=== PATIENT | female | born 1990 ===

== ENCOUNTER 2016-07-31 17:01 | Emergency (ER) | payer MEDICAID ==
[2016-07-31 17:25] VITALS: BP 113/82; PULSE 81; RESP 20; TEMP 98.3; O2SAT 99
--- NOTE | 2016-07-31 17:47 | ED PDOC ---
HPI: Back Time Seen by Provider: 07/31/16 17:27 Chief Complaint (Nursing): Back Pain Chief Complaint (Provider): back pain History Per: Patient Additional Complaint(s): pt w/ hx scoliosis surgically repaired in 2009 c/o upper back pain x 3 days. no falls or injury. no associated fever, cp, sob, abd pain, n/v/d, urinary c/o , numbness, weakness distally. Past Medical History Reviewed: Historical Data, Nursing Documentation, Vital Signs Vital Signs: Last Vital Signs Temp 98.3 F 07/31/16 17:24 Pulse 81 07/31/16 17:24 Resp 20 07/31/16 17:24 BP 113/82 07/31/16 17:24 Pulse Ox 99 07/31/16 17:24 - Medical History PMH: Asthma (as child), Back Problems (scoliosis), Fractures (left foot) Denies: Chronic Kidney Disease - Surgical History Surgical History: Back Surgery (dahiana for scoliosis) - Family History Family History: States: No Known Family Hx - Social History Current smoker - smoking cessation education provided: No Alcohol: None Drugs: Denies - Home Medications Home Medications: Ambulatory Orders Medication Instructions Recorded Ibuprofen 600 mg PO Q8H PRN #60 tab 11/20/14 oxyCODONE/Acetaminophen [Percocet 1 tab PO Q6H PRN #5 tab 12/06/14 5/325 mg Tab] Prednisone 50 mg PO DAILY #5 tab 04/09/15 hydrOXYzine HCl [Atarax] 25 mg PO Q6H PRN #30 tab 04/10/15 Ciprofloxacin/Ciprofloxa HCl 500 mg PO BID #10 ter 10/06/15 [Ciprofloxacin] Albuterol Sulfate [Proair Hfa] 2 puff IH Q6 #1 unit 11/16/15 Hydrocodone Bit/Homatrop Me-Br 5 ml PO HS PRN #30 ml 11/16/15 [Hydrocodone-Homatropine Syrup] levoFLOXacin [Levaquin] 750 mg PO DAILY #7 tab 11/16/15 Cyclobenzaprine [Cyclobenzaprine 10 mg PO Q8 PRN #12 tab 01/09/16 HCl] Ibuprofen [Motrin] 600 mg PO TID PRN #30 tab 01/09/16 Meloxicam 7.5 mg PO BID PRN #14 tablet 01/12/16 diaZEpam [Valium] 5 mg PO Q8 PRN #4 tab 01/12/16 Naproxen [Naprosyn] 500 mg PO BID PRN #15 tablet 01/29/16 Amoxicillin/Clavulanate [Augmentin 1 tab PO BID #20 tab 03/29/16 875 MG-125 MG] Cyclobenzaprine [Cyclobenzaprine 10 mg PO Q8 #15 tab 07/31/16 HCl] Naproxen [Naprosyn Tab] 375 mg PO BID #20 tab 07/31/16 - Allergies Allergies/Adverse Reactions: Allergies Allergy/AdvReac Type Severity Reaction Status Date / Time Iodinated Contrast Media - Allergy RASH Verified 07/31/16 17:23 Oral and [Iodinated Contrast Media - IV Dye] Sulfa (Sulfonamide Allergy RASH Verified 07/31/16 17:23 Antibiotics) Review of Systems ROS Statement: Except As Marked, All Systems Reviewed And Found Negative Musculoskeletal: Positive for: Back Pain Physical Exam - Reviewed Nursing Documentation Reviewed: Yes Vital Signs Reviewed: Yes - Physical Exam Appears: Positive for: Well, Non-toxic, No Acute Distress Skin: Positive for: Normal Color, Warm, DRY Neck: Positive for: Normal, Painless ROM Cardiovascular/Chest: Positive for: Regular Rate, Rhythm Respiratory: Positive for: CNT, Normal Breath Sounds Gastrointestinal/Abdominal: Positive for: Normal Exam, Bowel Sounds, Soft. Negative for: Tenderness Back: Positive for: Normal Inspection, Muscle Spasm (L midscapular). Negative for: Vertebral Tenderness, Decreased ROM Extremity: Positive for: Normal ROM. Negative for: Tenderness Neurologic/Psych: Positive for: Alert, Oriented, Gait (steady). Negative for: Motor/Sensory Deficits - ECG O2 Sat by Pulse Oximetry: 99 Disposition - Clinical Impression Clinical Impression: Strain of thoracic region - Patient ED Disposition Is Patient to be Admitted: No - Disposition Referrals: Coleen Topete MD [Staff Provider] - Disposition: Routine/Home Disposition Time: 17:49 Condition: GOOD Prescriptions: Cyclobenzaprine [Cyclobenzaprine HCl] 10 mg PO Q8 #15 tab Naproxen [Naprosyn Tab] 375 mg PO BID #20 tab Instructions: Back Pain (ED) Forms: [facility] ED School/Work Excuse
== END 2016-07-31 18:20 | disposition home or self-care (01) ==
LOC: H.ER 17:01
DX: M54.9 Dorsalgia, unspecified (principal)

== ENCOUNTER 2016-08-19 16:32 | Emergency (ER) | payer MEDICAID ==
[2016-08-19 16:42] VITALS: BP 118/75; PULSE 90; TEMP 98.2; O2SAT 99
[2016-08-19] MEDS ORDERED: Albuterol-Ipratrop 3 mg / 0.5 (3 ml) UD IH STA (17:15)
[2016-08-19] MEDS ORDERED: Albuterol-Ipratrop 3 mg / 0.5 (3 ml) UD INH STA (17:15)
--- NOTE | 2016-08-19 17:24 | ED PDOC ---
HPI: CCC, URI, Sore Throat Time Seen by Provider: 08/19/16 16:48 Chief Complaint (Nursing): Chest Pain Chief Complaint (Provider): Cough History Per: Patient History/Exam Limitations: no limitations Onset/Duration Of Symptoms: Days (3) Current Symptoms Are (Timing): Still Present Additional Complaint(s): Cough, runny nose, nasal congestion, bodyaches, chest pain on cough, and tightness like her asthma flare. No nausea, vomit, diarrhea, weakness, abd pain , headaches. Did not take anything for her asthma. Has no meds for it. No calf pain. No control meds. No long distance travel. Past Medical History Reviewed: Nursing Documentation, Vital Signs Vital Signs: Last Vital Signs Temp 98.2 F 08/19/16 16:41 Pulse 90 08/19/16 16:41 Resp 20 08/19/16 18:07 BP 118/75 08/19/16 16:41 Pulse Ox 99 08/19/16 17:27 - Medical History PMH: Asthma (as child), Back Problems (scoliosis), Fractures (left foot) Denies: Chronic Kidney Disease - Surgical History Surgical History: Back Surgery ([place] for scoliosis) - Family History Family History: States: Unknown Family Hx - Home Medications Home Medications: Ambulatory Orders Medication Instructions Recorded Ibuprofen 600 mg PO Q8H PRN #60 tab 11/20/14 oxyCODONE/Acetaminophen [Percocet 1 tab PO Q6H PRN #5 tab 12/06/14 5/325 mg Tab] Prednisone 50 mg PO DAILY #5 tab 04/09/15 hydrOXYzine HCl [Atarax] 25 mg PO Q6H PRN #30 tab 04/10/15 Ciprofloxacin/Ciprofloxa HCl 500 mg PO BID #10 ter 10/06/15 [Ciprofloxacin] Albuterol Sulfate [Proair Hfa] 2 puff IH Q6 #1 unit 11/16/15 Hydrocodone Bit/Homatrop Me-Br 5 ml PO HS PRN #30 ml 11/16/15 [Hydrocodone-Homatropine Syrup] levoFLOXacin [Levaquin] 750 mg PO DAILY #7 tab 11/16/15 Cyclobenzaprine [Cyclobenzaprine 10 mg PO Q8 PRN #12 tab 01/09/16 HCl] Ibuprofen [Motrin] 600 mg PO TID PRN #30 tab 01/09/16 Meloxicam 7.5 mg PO BID PRN #14 tablet 01/12/16 diaZEpam [Valium] 5 mg PO Q8 PRN #4 tab 01/12/16 Naproxen [Naprosyn] 500 mg PO BID PRN #15 tablet 01/29/16 Amoxicillin/Clavulanate [Augmentin 1 tab PO BID #20 tab 03/29/16 875 MG-125 MG] Cyclobenzaprine [Cyclobenzaprine 10 mg PO Q8 #15 tab 07/31/16 HCl] Naproxen [Naprosyn Tab] 375 mg PO BID #20 tab 07/31/16 Albuterol Sulfate [Proair Hfa] 0.09 mg IH Q6H PRN #2 inh 08/19/16 Ibuprofen [Motrin] 600 mg PO TID 7 Days 08/19/16 predniSONE [predniSONE Tab] 20 mg PO BID 5 Days 08/19/16 - Allergies Allergies/Adverse Reactions: Allergies Allergy/AdvReac Type Severity Reaction Status Date / Time Iodinated Contrast Media - Allergy RASH Verified 08/19/16 16:41 Oral and [Iodinated Contrast Media - IV Dye] Sulfa (Sulfonamide Allergy RASH Verified 08/19/16 16:41 Antibiotics) Review of Systems ROS Statement: Except As Marked, All Systems Reviewed And Found Negative ENT: Positive for: Nose Congestion Cardiovascular: Positive for: Chest Pain Respiratory: Positive for: Cough, Shortness of Breath Musculoskeletal: Positive for: Other (bodyaches) Physical Exam - Reviewed Nursing Documentation Reviewed: Yes Vital Signs Reviewed: Yes - Physical Exam Appears: Positive for: Non-toxic, No Acute Distress Head Exam: Positive for: ATRAUMATIC, NORMAL INSPECTION, NORMOCEPHALIC Skin: Positive for: Normal Color, Warm, DRY Eye Exam: Positive for: EOMI, Normal appearance, PERRL ENT: Positive for: Normal ENT Inspection Neck: Positive for: Normal, Painless ROM Cardiovascular/Chest: Positive for: Regular Rate, Rhythm, Chest Non Tender. Negative for: Edema Respiratory: Positive for: Wheezing (b/l mild ). Negative for: Accessory Muscle Use Gastrointestinal/Abdominal: Positive for: Normal Exam, Bowel Sounds, Soft. Negative for: Tenderness Back: Positive for: Normal Inspection. Negative for: L CVA Tenderness, R CVA Tenderness Extremity: Positive for: Normal ROM. Negative for: Tenderness, Pedal Edema Neurologic/Psych: Positive for: Alert, Oriented - ECG ECG: Positive for: Interpreted By Me, Viewed By Me ECG Rhythm: Positive for: Normal QRS, Normal ST Segment, Sinus Rhythm O2 Sat by Pulse Oximetry: 99 Pulse Ox Interpretation: Normal - Radiology X-Ray: Read By Radiologist X-Ray Interpretation: No Acute Disease - Progress ED Course And Treament: 1854: Stable. AAOx3. Pain free. Tolerated PO. FU with pcp. Disposition - Clinical Impression Clinical Impression: Chest wall pain, Asthma, URI (upper respiratory infection) - Patient ED Disposition Is Patient to be Admitted: No Counseled Patient/Family Regarding: Studies Performed, Diagnosis, Need For Followup, Rx Given - Disposition Referrals: [facility] [Outside] - 08/20/16 Disposition: Routine/Home Disposition Time: 18:56 Condition: STABLE Additional Instructions: Return if not better in 3 days. Prescriptions: Ibuprofen [Motrin] 600 mg PO TID 7 Days Albuterol Sulfate [Proair Hfa] 0.09 mg IH Q6H PRN #2 inh PRN Reason: Wheezing predniSONE [predniSONE Tab] 20 mg PO BID 5 Days Instructions: Asthma (ED), Upper Respiratory Infection (ED), Chest Pain (ED) Forms: [facility] ED School/Work Excuse
[2016-08-19] MEDS ORDERED: Albuterol-Ipratrop 3 mg / 0.5 (3 ml) UD ONE (17:40)
[2016-08-19 18:09] VITALS: RESP 20
--- NOTE | 2016-08-19 18:32 | RAD ---
HISTORY: dyspnea COMPARISON: Chest x-ray performed 01/29/16 TECHNIQUE: Chest, one view. FINDINGS: LUNGS: No focal consolidation. Please note that chest x-ray has limited sensitivity for the detection of pulmonary masses. PLEURA: No significant pleural effusion identified. No definite pneumothorax . CARDIOVASCULAR: The cardiomediastinal silhouette appears within normal limits of size. OSSEOUS STRUCTURES: Re- demonstrated bilateral long segment Metz rods extending from the thoracic to the lumbar spine. VISUALIZED UPPER ABDOMEN: Unremarkable. OTHER FINDINGS: None. IMPRESSION: No focal consolidation, significant pleural effusion, or definite pneumothorax identified.
--- NOTE | 2016-08-20 08:26 | CARD ---
APPROVED REPORT EKG Measurement Heart [id number] MD [id number] <Conclusion> Normal sinus rhythm Nonspecific T wave abnormality Abnormal ECG
== END 2016-08-19 19:21 | disposition home or self-care (01) ==
LOC: H.ER 16:32
DX: J45.909 Unspecified asthma, uncomplicated (principal); J06.9 Acute upper respiratory infection, unspecified; J02.9 Acute pharyngitis, unspecified; R06.00 Dyspnea, unspecified

== ENCOUNTER 2016-10-08 18:49 | Emergency (ER) | payer MEDICAID ==
[2016-10-08 18:56] VITALS: BP 112/65; PULSE 92; RESP 16; TEMP 98.2; O2SAT 100
--- NOTE | 2016-10-08 19:13 | ED PDOC ---
HPI: Female Pain Time Seen by Provider: 10/08/16 18:49 Chief Complaint (Nursing): Female Genitourinary Chief Complaint (Provider): Female Genitourinary History Per: Patient History/Exam Limitations: no limitations Onset/Duration Of Symptoms: Days (x2 days) Current Symptoms Are (Timing): Still Present Additional Complaint(s): 26 y/o female presents to the emergency department with a complaint of urinary frequency and pressure with small amount of urine output x2 days. Associated with a foul smell and light green urine color. [place] which is why she believes being in a wet bathing suit caused her symptoms. Reports hydrating herself more than usual without any help. Denies blood in urine, back pain or abdominal pain. Past Medical History Reviewed: Historical Data, Nursing Documentation, Vital Signs Vital Signs: Last Vital Signs Temp 98.2 F 10/08/16 18:53 Pulse 92 H 10/08/16 18:53 Resp 16 10/08/16 18:53 BP 112/65 10/08/16 18:53 Pulse Ox 100 10/08/16 18:53 - Medical History PMH: Asthma (as child), Back Problems (scoliosis), Fractures (left foot) Denies: Chronic Kidney Disease - Surgical History Surgical History: Back Surgery ([place] for scoliosis) - Family History Family History: States: Unknown Family Hx - Home Medications Home Medications: Ambulatory Orders Medication Instructions Recorded Ibuprofen 600 mg PO Q8H PRN #60 tab 11/20/14 oxyCODONE/Acetaminophen [Percocet 1 tab PO Q6H PRN #5 tab 12/06/14 5/325 mg Tab] Prednisone 50 mg PO DAILY #5 tab 04/09/15 hydrOXYzine HCl [Atarax] 25 mg PO Q6H PRN #30 tab 04/10/15 Ciprofloxacin/Ciprofloxa HCl 500 mg PO BID #10 ter 10/06/15 [Ciprofloxacin] Albuterol Sulfate [Proair Hfa] 2 puff IH Q6 #1 unit 11/16/15 Hydrocodone Bit/Homatrop Me-Br 5 ml PO HS PRN #30 ml 11/16/15 [Hydrocodone-Homatropine Syrup] levoFLOXacin [Levaquin] 750 mg PO DAILY #7 tab 11/16/15 Cyclobenzaprine [Cyclobenzaprine 10 mg PO Q8 PRN #12 tab 01/09/16 HCl] Ibuprofen [Motrin] 600 mg PO TID PRN #30 tab 01/09/16 Meloxicam 7.5 mg PO BID PRN #14 tablet 01/12/16 diaZEpam [Valium] 5 mg PO Q8 PRN #4 tab 01/12/16 Naproxen [Naprosyn] 500 mg PO BID PRN #15 tablet 01/29/16 Amoxicillin/Clavulanate [Augmentin 1 tab PO BID #20 tab 03/29/16 875 MG-125 MG] Cyclobenzaprine [Cyclobenzaprine 10 mg PO Q8 #15 tab 07/31/16 HCl] Naproxen [Naprosyn Tab] 375 mg PO BID #20 tab 07/31/16 Albuterol Sulfate [Proair Hfa] 0.09 mg IH Q6H PRN #2 inh 08/19/16 Ibuprofen [Motrin] 600 mg PO TID 7 Days 08/19/16 predniSONE [predniSONE Tab] 20 mg PO BID 5 Days 08/19/16 Metronidazole [Flagyl] 1 tab PO BID #14 tablet 10/08/16 - Allergies Allergies/Adverse Reactions: Allergies Allergy/AdvReac Type Severity Reaction Status Date / Time Iodinated Contrast Media - Allergy RASH Verified 08/19/16 16:41 Oral and [Iodinated Contrast Media - IV Dye] Sulfa (Sulfonamide Allergy RASH Verified 08/19/16 16:41 Antibiotics) Review of Systems ROS Statement: Except As Marked, All Systems Reviewed And Found Negative Gastrointestinal: Negative for: Abdominal Pain Genitourinary Female: Positive for: Frequency (Pressure while peeing with small amount of urine output), Other (Foul smell of urine that is light green in color. ). Negative for: Hematuria Musculoskeletal: Negative for: Back Pain Physical Exam - Reviewed Nursing Documentation Reviewed: Yes Vital Signs Reviewed: Yes - Physical Exam Appears: Positive for: Non-toxic, No Acute Distress Head Exam: Positive for: ATRAUMATIC, NORMAL INSPECTION, NORMOCEPHALIC Skin: Positive for: Normal Color, Warm, Dry Gastrointestinal/Abdominal: Positive for: Normal Exam, Soft, Other (Notes mild pressure to the suprapubic region ). Negative for: Tenderness (Non tender abdomen ) Pelvic Exam: Positive for: Other (NO ABNORMAL VAGINAL DISCHARGE NOTED; CERVIX WNL). Negative for: Discharge, Tender W/Cervical Motion, Tender Adnexa Back: Positive for: Normal Inspection. Negative for: L CVA Tenderness, R CVA Tenderness Neurologic/Psych: Positive for: Alert, Oriented - Laboratory Results Urine POC: Negative Urine dip results: Negative for: Leukocyte Esterase, Blood, Nitrate, Ketones, Glucose, Bilirubin, Protein - ECG O2 Sat by Pulse Oximetry: 100 (RA) Pulse Ox Interpretation: Normal - Progress ED Course And Treament: GC SENT VAGINAL CX SENT D/W PATIENT. PATIENT STATES SHE HAS H/O BV AND FEELS SHE HAS THE BEGINNING OF THIS INFECTION. IS NOT CONCERNED FOR STDS. Medical Decision Making Medical Decision Making: Time: 18:49 Initial Impression: Genitourinary Problem Initial Plan: --ED urine dipstick (POC) --ED Urine --Urine Culture Stat --Urinalysis STAT --Chlamydia/GC RNA, TMA --Revaluation Scribe Attestation: Documented by Dinora Mendoza, acting as a scribe for Rafal Dominguez PA-C. Provider Scribe Attestation: All medical record entries made by the Scribe were at my direction and personally dictated by me. I have reviewed the chart and agree that the record accurately reflects my personal performance of the history, physical exam, medical decision making, and the department course for this patient. I have also personally directed, reviewed, and agree with the discharge instructions and disposition. Disposition - Clinical Impression Clinical Impression: Vaginitis - Patient ED Disposition Is Patient to be Admitted: No - Disposition Referrals: [facility] [Outside] Disposition: Routine/Home Disposition Time: 19:41 Condition: FAIR Prescriptions: Metronidazole [Flagyl] 1 tab PO BID #14 tablet Instructions: Vaginitis (ED)
[2016-10-08 20:49] LABS: URINE BILIRUBIN NEGATIVE (NEGATIVE); URINE BLOOD NEGATIVE (NEGATIVE); URINE COLOR STRAW (YELLOW); URINE GLUCOSE (UA) NEG (Normal); URINE KETONE NEGATIVE (NEGATIVE); URINE LEUKOCYTE ESTERASE NEG Leu/uL (Negative); URINE PROTEIN NEGATIVE (NEGATIVE); URINE UROBILINOGEN 0.2-1.0 mg/dL (0.2-1.0); WBC URINE 1 /hpf (0-5)
== END 2016-10-08 20:00 | disposition home or self-care (01) ==
LOC: H.ER 18:49
DX: N39.0 Urinary tract infection, site not specified (principal)